=== PATIENT | female | born 1955 | race Caucasian/White ===

== ENCOUNTER 2019-07-12 17:13 | Emergency (ER) | payer OTHER ==
[~2019-07-12] VITALS: Ht 157.5 cm; Wt 76.0 kg
[~2019-07-12 17:13] MED LIST: ASPI-817 PO; ASPI81TA52 PO; CRES5 PO; MECL12.574 PO
[2019-07-12 17:16] VITALS: Ht 157.5 cm; Wt 76.0 kg
[2019-07-12] MEDS ORDERED: SOD CHLORIDE 0.9% 500 ML IV STA (17:29)
[2019-07-12] MEDS ORDERED: ONDANSETRON 4 MG INJ IV STA (17:29)
[2019-07-12] MEDS ORDERED: LORAZEPAM 2 MG INJ IV ONE (19:00)
[2019-07-12 19:27] VITALS: BP 122/58; PULSE 68; RESP 16
== END 2019-07-12 19:28 | disposition home or self-care (01) ==
LOC: E/R 17:13
DX: R42 Dizziness and giddiness (principal); R40.2142 Coma scale, eyes open, spontaneous, at arrival to emergency department; R40.2252 Coma scale, best verbal response, oriented, at arrival to emergency department; R40.2362 Coma scale, best motor response, obeys commands, at arrival to emergency department; Z79.82 Long term (current) use of aspirin
CPT/HCPCS: 36415; 80048; 85025; 96374; 96375; 99284; J2060; J2405; J7040

== ENCOUNTER 2019-07-14 11:36 | Emergency (ER) | payer SELFPAY ==
[~2019-07-14] VITALS: Ht 167.6 cm; Wt 75.0 kg
[~2019-07-14 11:36] MED LIST changes: -ASPI81TA52 PO
[2019-07-14 11:39] VITALS: Ht 167.6 cm; Wt 75.0 kg
[2019-07-14 14:26] VITALS: BP 154/77; PULSE 66; RESP 18
== END 2019-07-14 14:35 | disposition left against medical advice (07) ==
LOC: E/R 11:36
DX: Z53.21 Procedure and treatment not carried out due to patient leaving prior to being seen by health care provider (principal)